=== PATIENT | female | born 1965 | race Caucasian/White ===

== ENCOUNTER 2018-08-09 08:18 | Outpatient (CLI) | payer OTHER | END 2018-08-09 08:25 | disposition home or self-care (01) | LOC: MAMO-SONO 08:18 | DX: Z12.31 Encounter for screening mammogram for malignant neoplasm of breast (principal); Z87.898 Personal history of other specified conditions; N60.11 Diffuse cystic mastopathy of right breast; N60.12 Diffuse cystic mastopathy of left breast ==

== ENCOUNTER 2020-07-28 09:44 | Outpatient (CLI) | payer OTHER | END 2020-07-28 09:50 | disposition home or self-care (01) | LOC: SONOGRAMA 09:44 → MAMO-SONO 10:15 | PROVIDERS: ATTEND Obstetrics & Gynecology Gynecology | DX: R10.2 Pelvic and perineal pain (principal); N60.11 Diffuse cystic mastopathy of right breast; N60.12 Diffuse cystic mastopathy of left breast ==

== ENCOUNTER 2022-12-05 12:24 | Outpatient (CLI) | payer OTHER | END 2022-12-05 12:34 | disposition home or self-care (01) | LOC: RAD 12:24 | PROVIDERS: ATTEND Legal Medicine | DX: R05.8 Other specified cough (principal) ==